=== PATIENT | female | born 1970 | race American Indian/Alaskan Native ===

== ENCOUNTER 2021-03-19 13:12 | Outpatient (CLI) | payer BC ==
--- NOTE | 2021-03-19 14:46 | Ultrasound Report ---
RIGHT DIGITAL DIAGNOSTIC MAMMOGRAM WITH CAD CONVENTIONAL, 03/19/2021 RIGHT LIMITED BREAST ULTRASOUND CLINICAL INFORMATION / INDICATION: Patient presents for six-month follow-up following benign right br east biopsy. INCONCLUSIVE MAMMOGRAM TECHNIQUE: Digital right mammographic imaging was performed. Limited ultrasound was performed. This e xamination was interpreted with the benefit of Computer-Aided Detection (CAD) analysis. COMPARISON: Prior mammogram 08/28/2020 FINDINGS: Breast Density: There are scattered areas of fibroglandular density. MAMMOGRAPHIC FINDINGS: No dominant mass, suspicious calcifications, or architectural distortion in th e right breast. There is a stable biopsy clip seen in the 11:00 position of the right breast, middle depth. There is no mammographic abnormality at the biopsy site. ULTRASOUND FINDINGS: Targeted ultrasound evaluation was performed of the area of interest. Targeted ultrasound of the area of prior biopsy site in the 11:00 position located 2 cm from the nipple is un remarkable. No suspicious cystic or solid lesion identified. IMPRESSION: 1. Stable biopsy clip in the right breast. No suspicious mammographic or sonographic abnormality iden tified. Follow up recommendation: Back to schedule. BI-RADS Category 2: Benign. A "normal" or negative report should not discourage follow up or biopsy of a clinically significant f inding. A written summary of these findings will be mailed to the patient. The patient will be entered into a mammography reporting system which will generate a reminder letter for the patient's next appointmen t at the appropriate interval. According to the [employer], yearly mammograms are recommended starting at age 40 and continuing as long as a woman is in good health. Breast MRI is recommended for women with an louise roximately 20-25% or greater lifetime risk of breast cancer, including women with a strong family his tory of breast or ovarian cancer and women who have been treated for Hodgkin's disease. Signer Name: Shaneka Sultana MD Signed: 03/19/2021 2:41 PM Workstation Name: [id number]
== END 2021-03-19 13:13 | disposition home or self-care (01) ==
LOC: SPVWC 13:12 → MERGE 13:12 → SPVWC 13:13
PROVIDERS: ATTEND Surgery
DX: R92.2 Inconclusive mammogram (principal)